=== PATIENT | male | born 1955 | race Caucasian/White ===

== ENCOUNTER 2020-05-30 02:26 | Outpatient (CLI) | payer OTHER, SELFPAY ==
[2020-05-30 18:46] LABS: SARS-CoV-2 RNA PCR Negative
== END 2020-05-30 02:27 | disposition home or self-care (01) ==
LOC: ANHCOVIDDT 02:27
PROVIDERS: Visit Provider Specialist
DX: Z01.812 Encounter for preprocedural laboratory examination (principal); Z20.828 Contact with and (suspected) exposure to other viral communicable diseases
CPT/HCPCS: 87635; C9803; U0003

== ENCOUNTER 2020-06-02 01:14 | Day surgery (SDC) | payer OTHER, SELFPAY ==
[2020-05-30 16:37] VITALS: BMI 33.4
[2020-06-02] VITALS (7 sets, daily range): BP systolic 125–138; BP diastolic 77–93; PULSE 57–62; RESP 13–19; TEMP 36.4–36.9; O2SAT 93–96; BMI 33.1
[2020-06-02 10:27] LABS: Basophils Percent Auto 0.3 % (0.2-1.2); Eosinophils Absolute Auto 0.1 K/mm3 (0-0.3); Eosinophils Percent Auto 1.8 % (0-4.4); Hematocrit 48.8 % (42.0-52.0); Hemoglobin 16.9 g/dL (14.0-18.0); Immature Granulocyte Absolute 0.03 K/mm3 (0.00-0.031); Immature Granulocyte Percent A 0.4 % (0-0.5); Lymphocytes Absolute Auto 2.73 K/mm3 (0.9-3.2); Lymphocytes Percent Auto 37.3 % (18.3-44.2); Mean Corpuscular HGB Conc 34.6 g/dl (32-36); Mean Corpuscular Volume 98.2 fl (80-100); Mean Platelet Volume 10.4 fl (7.4-10.4); Monocytes Absolute Auto 0.8 K/mm3 (0.1-0.6); Monocytes Percent Auto 10.7 % (2.6-8.5); Neutrophils Absolute Auto 3.6 K/mm3 (1.3-6.7); Neutrophils Percent Auto 49.5 % (45.5-73.1); Platelet Count Result 173 k/mm3 (150-375); Red Blood Count 4.97 M/mm3 (4.6-6.20); Red Cell Distribution Width 11.7 % (11.5-14.5); White Blood Count 7.3 K/mm3 (4.5-10.0)
--- NOTE | 2020-06-02 10:52 | SUR.PREOP ---
Patient arrives to [facility] room 4 for planned LHC. Patient ambulatory on arrival. PIV placed and labs obtained. VSS stable. Patient denies pain. Patient educated on procedure and all questions answered. Will continue to monitor.
[2020-06-02 11:08] LABS: Anion Gap 5 mmol/L (8-16); Blood Urea Nitrogen 21 mg/dL (9-20); Calcium 8.5 mg/dL (8.4-10.2); Carbon Dioxide 26 mmol/L (22-30); Chloride 107 mmol/L (98-107); Estimated CRCL calculation 147 ml/min; Estimated Glomerular Filt Rate > 60; Glucose 106 mg/dL (75-110); Potassium 3.9 mmol/L (3.4-5.0); Sodium 138 mmol/L (137-145)
[2020-06-02 11:41] LABS: Prothrombin Time 13.5 Seconds (11.1-14.7)
--- NOTE | 2020-06-02 13:27 | P.HP_ITS ---
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 for elective cardiac catheterization for definitive diagnosis of coronary disease Chief complaint: Positive Stress Test, Surgical Clearance Narrative: Lonnie Garcia is a 64 year old male [facility] Social History Social History (Updated 05/30/20 @ 17:24 by Mariangel Mahoney RN) Smoking status: Current every day smoker Tobacco type: cigarettes Second hand tobacco smoke exposure: No Alcohol intake: current Drinks per week: 8 Substance use: never Gender identity (if verbalized by the patient): Male Spiritual care concerns: No Meds Home Medications and Allergies Home Medications Medication Instructions Recorded Confirmed Type albuterol sulfate [ProAir 90 mcg INHALATION PRN PRN 05/30/20 05/30/20 History RespiClick] escitalopram oxalate [Lexapro] 10 mg PO HS 05/30/20 05/30/20 History [id number]-[id number]-[id number] 100 inh INHALATION PRN PRN 05/30/20 05/30/20 History [Trelegy Ellipta] paroxetine HCl [Paxil] 20 mg PO DAILY 05/30/20 05/30/20 History Allergies Allergy/AdvReac Type Severity Reaction Status Date / Time No Known Allergies Allergy Verified 06/02/20 10:44 Vital Signs Vital Signs - 24 hr 06/02/20 10:30 Temperature 36.9 C Pulse Rate 60 Respiratory Rate 19 Blood Pressure 126/93 H Pulse Oximetry 96 Exam Narrative: Exam Narrative: Awake alert oriented x3 not in acute distress Neck is supple no obvious JVD, no carotid bruit Chest: Good air entry bilaterally, lungs are clear to auscultation and percussion bilaterally Cardiovascular: Regular rate and rhythm, 2/6 systolic murmur noted left sternal border Abdomen: Soft nontender bowel sounds positive, significant enlargement with large hernia noted Extremities: No edema has good pulses distally bilaterally H&P: Results Labs Labs: Short CBC 06/02/20 Range/Units 10:19 WBC 7.3 (4.5-10.0) K/mm3 Hgb 16.9 (14.0-18.0) g/dL Hct 48.8 (42.0-52.0) % Plt Count 173 (150-375) k/mm3 [facility] 06/02/20 10:42 Sodium 138 Potassium 3.9 Chloride 107 Carbon Dioxide 26 BUN 21 H Creatinine 0.60 L Glucose 106 Calcium 8.5 Assessment and Plan Assessment and plan (1) Abnormal stress electrocardiogram test: Code(s): R94.39 - Abnormal result of other cardiovascular function study Status: Acute Additional Plan will plan cardiac catheterization. The procedure was discussed with the patient, risks, benefits, and alternative diagnostic measure was explained, patient agreed to the procedure
--- NOTE | 2020-06-02 13:29 | WPDMODSED ---
Moderate Sedation Note-Pt Data Patient Data Allergies Allergy/AdvReac Type Severity Reaction Status Date / Time No Known Allergies Allergy Verified 06/02/20 10:44 Home Medications Medication Instructions Recorded Confirmed Type albuterol sulfate [ProAir 90 mcg INHALATION PRN PRN 05/30/20 05/30/20 History RespiClick] escitalopram oxalate [Lexapro] 10 mg PO HS 05/30/20 05/30/20 History [id number]-fjzvdslin-yecvxfbt 100 inh INHALATION PRN PRN 05/30/20 05/30/20 History [Trelegy Ellipta] paroxetine HCl [Paxil] 20 mg PO DAILY 05/30/20 05/30/20 History Current Medications: Active Medications Sodium Chloride (Normal Saline Iv) 500 mls @ 100 mls/hr IV CONT .Q5H [facility] Sedation/Anesthesia: No previous sedation/anesthesia problems (including family history). [facility] Social History Social History (Updated 05/30/20 @ 17:24 by Mariangel Mahoney RN) Smoking status: Current every day smoker Tobacco type: cigarettes Second hand tobacco smoke exposure: No Alcohol intake: current Drinks per week: 8 Substance use: never Gender identity (if verbalized by the patient): Male Spiritual care concerns: No Mod Sed Physical Exam Physical Exam Pre Procedural Exam: Normal: Appearance, Eyes, Ears, Nose, Neck, Throat, Airway, Lungs, Heart Size, Heart Rate, Heart Rhythm, Neuro Exam, Abdomen, Liver, Kidneys, Spleen, Breasts, Genitalia, Extremities and Skin Hours since solid foods: 8 Hours since liquid intake: 8 Internal Medicine - PN: Obj Da Vital Signs Vital Signs: Vital Signs - 24 hr 06/02/20 10:30 Temperature 36.9 C Pulse Rate 60 Respiratory Rate 19 Blood Pressure 126/93 H Pulse Oximetry 96 Meds/Results Medications: Active Medications Generic Name Dose Route Start Last Admin Trade Name Freq PRN Reason Stop Dose Admin Sodium Chloride 500 mls @ 100 mls/hr 06/02/20 08:05 Normal Saline Iv IV CONT .Q5H [facility] Labs CBC & Chem 7: 06/02/20 10:19 06/02/20 10:42 Labs: Laboratory Results - last 24 hr 06/02/20 06/02/20 06/02/20 10:19 10:42 11:17 WBC 7.3 RBC 4.97 Hgb 16.9 Hct 48.8 MCV 98.2 MCH 34.0 MCHC 34.6 RDW 11.7 Plt Count 173 MPV 10.4 Immature Gran % (Auto) 0.4 Neut % (Auto) 49.5 Lymph % (Auto) 37.3 [place] % (Auto) 10.7 H Eos % (Auto) 1.8 Baso % (Auto) 0.3 Lymph # (Auto) 2.73 [place] # (Auto) 0.8 H Eos # (Auto) 0.1 Baso # (Auto) 0.0 Abs Immat Gran (auto) 0.03 Absolute Neuts (auto) 3.6 Absolute Nucleated RBC 0.0 Nucleated RBC % 0.0 PT 13.5 INR 1.0 Sodium 138 Potassium 3.9 Chloride 107 Carbon Dioxide 26 Anion Gap 5 L BUN 21 H Creatinine 0.60 L Estim Creat Clear Calc 147 Estimated GFR > 60 Glucose 106 Calcium 8.5 ASA Classification/Sedation ASA Classification/Sedation ASA Class: II Risks: Risks, benefits and alternatives explained and patient/family accepted plan for sedation. Patient re-evaluated immediately prior to sedation.
--- NOTE | 2020-06-02 13:31 | P.PCNCC_ITS ---
Cardiac Cath Procedure Note Date of procedure:: 06/02/20 Performing physician:: Abdiel Maloney MD Procedure: 1. Left heart catheterization, selective coronary angiogram. 2. Left ventricular angiogram. 3. Angio-Seal device for arterial hemostasis 4. Conscious sedation. starting time is 1:00 p.m. in the time is 1:23 p.m. Clam Bed Worker: Dr. Adbiel Maloney Complications: None. Sedation: Conscious sedation, local anesthesia, using 2 mg of Versed said, 25 mcg of fentanyl, and using 1% lidocaine for local anesthesia. History: 64 years old gentleman with history of dyslipidemia seen because of shortness of breath and abnormal EKG as he is going for abdominal surgery underwent stress test revealed anterior ischemia was brought to the cathode washer for elective cardiac evaluation for definitive diagnosis of coronary disease Technique: After informed consent was obtained from patient, was brought to the cathode washer, put in the cathode washer table, prepped and draped in usual sterile fashion. [place] sheath was inserted into the right common femoral artery, through the sheath 5 [place] JL4 catheter inserted, advanced to the left coronary artery, left coronary artery angiogram was obtained. The catheter was exchanged over guidewire into a 5 [place] JR4 catheter, advanced to the right coronary artery, right coronary artery angiogram was obtained. The catheter then was exchanged over guidewire into this 5 [place] pigtail catheter, advanced to left ventricle, left ventricular angiogram was obtained. The catheter then was pulled, the sheath was pulled applying Angio-Seal device for arterial hemostasis. Patient tolerated the procedure no complication, taken from the cathode washer to his room in stable condition stable vital signs. Hemodynamics: aortic pressure 124/60 . LV pressure 124/04 with LVEDP of 24 mmHg Angiographic findings: Left main: Medium size artery no significant disease or stenosis. Lad medium size artery showed mid LAD 40% diffuse disease extending from the mid segment towards the end of the vessel Left circumflex artery, medium size artery, no significant disease or stenosis. RCA: Dominant vessel, showed mid RCA minimal irregularity, it seems to have abnormal takeoff non selective angiogram was done LV: Normal size left ventricle with normal left ventricular systolic function. Summary: Mild coronary artery disease, normal left ventricular systolic function. Recommendation: Maximum medical treatment. Risk factor modification
--- NOTE | 2020-06-02 15:32 | PC.NURSE ---
1530 - Pt resting well post cardiac cath. Right femoral artery puncture site remains clean, dry and intact. Distal pulses remain strong with no edema. Pt tolerated meal well.
--- NOTE | 2020-06-02 17:12 | SUR.PHASEII ---
1700 Discharge instructions reviewed w patient w stated understanding. AngioSeal instructions reviewed as well. IV D/c'd. SIte clean and dry without redness or swelling. Right Femoral artery puncture site w tegaderm drsg intact. No bruising, tenderness or drng present. Pt left via wheelchair with his sister in personal vehicle.
== END 2020-06-02 17:00 | disposition home or self-care (01) ==
PROVIDERS: Visit Provider Specialist
PROC: 4A023N7 Measurement of Cardiac Sampling and Pressure, Left Heart, Percutaneous Approach (ICD-10-PCS; CPT 93452; principal; 2020-06-02 12:30)
DX: Z01.810 Encounter for preprocedural cardiovascular examination (principal); I25.10 Atherosclerotic heart disease of native coronary artery without angina pectoris; R94.39 Abnormal result of other cardiovascular function study; R06.02 Shortness of breath; I10 Essential (primary) hypertension; E78.5 Hyperlipidemia, unspecified
CPT/HCPCS: 36415; 80048; 85025; 85610; 93458; C1760; C1887; C1894; G0269; J1644; J2250; J3010; J7040